=== PATIENT | male | born 1995 | race Caucasian/White ===

== ENCOUNTER 2023-05-12 18:42 | Observation (INO) | payer OTHER ==
[2023-05-12] MEDS ORDERED: SODIUM CHLORIDE 0.9% 1,000 ML IV STA (18:59)
--- NOTE | 2023-05-12 19:05 | ED ---
Trauma HPI - General Source: patient, RN notes reviewed Mode of arrival: ambulatory Limitations: no limitations <Segun Watson - Last Filed: 05/12/23 20:30> <Jean Paul Saleh - Last Filed: 05/12/23 22:03> - General Chief Complaint: Trauma Stated Complaint: [facility]-Tra[facility] - History of Present Illness Initial Comments: This is a pleasant 27-year-old male presents to emergency department after being electrocuted at work at about 4:30 PM. Patient states he was working contact board. States he drinks 2 plates were by a piece of sand paper. However in the process of working with this he sustained a shock he continues to his left middle finger. He felt the shock of his left arm around his shoulders and his right hand. Soreness to the left upper arm and left shoulder. As well as the left upper chest area. Exacerbated by movement., Sore pain. Lungs breath. Patient believes he might have lost consciousness for a second. There was no resuscitation needed. Patient denying any shortness of breath. No hearing disturbance. No headache. No numbness or tingling. Does state that he is having a pounding sensation to his heart. No significant past medical history. Nonsmoker, no alcohol or drug abuse. (Segun Watson) - Related Data Home Medications Medication Instructions Recorded Confirmed No Known Home Medications 05/12/23 05/12/23 Allergies Allergy/AdvReac Type Severity Reaction Status Date / Time No Known Allergies Allergy Verified 05/12/23 20:23 Review of Systems ROS Other: All systems not noted in ROS Statement are negative. <Segun Watson - Last Filed: 05/12/23 20:30> ROS Other: All systems not noted in ROS Statement are negative. <Jean Paul Saleh - Last Filed: 05/12/23 22:03> ROS Statement: Those systems with pertinent positive or pertinent negative responses have been documented in the HPI. Past Medical History Past Medical History: No Reported History History of Any Multi-Drug Resistant Organisms: None Reported Past Surgical History: Back Surgery Past Psychological History: No Psychological Hx Reported Smoking Status: Never smoker Past Alcohol Use History: None Reported Past Drug Use History: None Reported <Segun Watson - Last Filed: 05/12/23 20:30> General Exam Limitations: no limitations General appearance: alert, in no apparent distress Head exam: Present: atraumatic, normocephalic, normal inspection Eye exam: Present: normal appearance, PERRL, EOMI. Absent: scleral icterus, conjunctival injection, periorbital swelling ENT exam: Present: normal exam, normal oropharynx, mucous membranes moist, TM's normal bilaterally, normal external ear exam Neck exam: Present: normal inspection, full ROM. Absent: tenderness, meningismus, lymphadenopathy Respiratory exam: Present: normal lung sounds bilaterally. Absent: respiratory distress, wheezes, rales, rhonchi, stridor Cardiovascular Exam: Present: regular rate, normal rhythm, normal heart sounds. Absent: systolic murmur, diastolic murmur, rubs, gallop, clicks GI/Abdominal exam: Present: soft, normal bowel sounds. Absent: distended, tenderness, guarding, rebound, rigid Extremities exam: Present: normal inspection, full ROM, normal capillary refill, other (Full range of motion all major joints. Full muscle strength all major muscle groups. Compartments are soft in the affected limbs.). Absent: tenderness, pedal edema, joint swelling, calf tenderness Back exam: Present: normal inspection Neurological exam: Present: alert, oriented X3, CN II-XII intact Psychiatric exam: Present: normal affect, normal mood Skin exam: Present: warm, dry, intact, normal color. Absent: rash <Segun Watson - Last Filed: 05/12/23 20:30> - General Exam Comments Initial Comments: Vital signs stable, patient afebrile. Patient does not appear to be ill or toxic. Cranial nerves II through XII grossly intact. Alert and oriented 4. (Segun Watson) Course <Segun Watson - Last Filed: 05/12/23 20:30> Vital Signs 05/12/23 05/12/23 05/12/23 18:44 18:51 20:51 Temperature 98.6 F Pulse Rate 87 80 68 Respiratory 20 16 20 Rate Blood Pressure 157/83 136/83 146/80 O2 Sat by Pulse 98 97 98 Oximetry - Reevaluation(s) Reevaluation #1: 05/12/23 20:03 Patient's laboratory investigations are essentially unremarkable. CPK is normal. Kidney function normal. CBC, CMP unremarkable. Lactic acid is normal. Patient in no significant distress. The case was discussed in detail with ED attending physician. Presentation, findings, treatment plan discussed in detail. Patient also seen and assessed by the ED attending physician, Dr. Saleh (Segun Watson) Medical Decision Making - Lab Data Result diagrams: 05/12/23 19:10 05/12/23 19:10 When compared to previous EKG there are: previous EKG unavailable Interpretation: no acute changes, normal EKG (EKG shows sinus rhythm with sinus arrhythmia, rate 82, normal intervals, normal axis, no acute ST or T-wave changes. No evidence of ST elevation or depression.) <Segun Watson - Last Filed: 05/12/23 20:30> - Lab Data Result diagrams: 05/12/23 19:10 05/12/23 19:10 <Jean Paul Saleh - Last Filed: 05/12/23 22:03> - Medical Decision Making Was pt. sent in by a medical professional or institution? @ -[no] Did you speak to anyone other than the patient for history? @ -[No] Did you review nursing and triage notes? @ -Agree Were old charts reviewed? @ -Not available Differential Diagnosis? @ -Low-voltage electrical shocks, rhabdomyolysis, electrical burn, early compartment syndrome, cardiac arrhythmia, this is not an all inclusive list.. EKG interpreted by me (3pts min.)? @ -Interpreted independently by me. See ER course X-rays interpreted by me (1pt min.)? @ -[none] CT interpreted by me (1pt min.)? @ -[none] U/S interpreted by me (1pt. min.)? @ -[none] What testing was considered but not performed? (CT, X-rays, U/S, labs)? Why? @ TEST indicated were performed What meds were considered but not given? Why? @ -Acetaminophen and ibuprofen for general soreness. Patient deferred initially Did you discuss the management of the patient with other professionals? @ -The case was discussed in detail with ED attending physician. Presentation, findings, treatment plan discussed in detail. Discussed in detail with Dr. Saleh as well as the trauma surgeon, Dr. Cifuentes--patient admitted for observation under hospitalist physician Did you reconcile home meds? @ -Workable Was smoking cessation discussed for >3mins.? @ -[none] Was critical care preformed (if so, how long)? @ -[none] Were there social determinants of health that impacted care today? How? (Homelessness, low income, unemployed, alcoholism, drug addiction, transportation, low edu. Level, literacy, decrease access to med. care, nursing home, rehab)? 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 Patient lives in [facility]. Certainly this could hamper continuity of care and follow-up for the patient. This is a work-related injury. Was there de-escalation of care discussed even if they declined? (Discuss DNR or withdrawal of care, Hospice)? @ -Discussed, full code What co-morbidities impacted this encounter? (DM, HTN, Smoking, COPD, CAD, Cance r, CVA, Hep., AIDS, mental health diagnosis, sleep apnea, morbid obesity)? @ -No significant comorbidities Was patient admitted / discharged? @ -Admitted, observation Undiagnosed new problem with uncertain prognosis? @ -Yes Drug Therapy requiring intensive monitoring for toxicity (Heparin, Nitro, Insulin, Cardizem)? @ -[none] Were any procedures done? @ -[none] Diagnosis/symptom? @ -Electrical shock, suspected entry into the left hand and asked through the right arm. Patient retains muscle soreness in the left arm and shoulder area, initial palpitations have ceased Acute, or Chronic, or Acute on Chronic? @ -Acute Uncomplicated (without systemic symptoms) or Complicated (systemic symptoms)? @ -No evidence of current systemic symptoms. However the patient would benefit from observation to ensure there is no progression of muscle damage. BP CK, observation for potential compartment syndrome. Side effects of treatment? @ -[none] Exacerbation, Progression, or Severe Exacerbation] @ -[no] Poses a threat to life or bodily function? @ -Unlikely at this point. Patient will require observation to ensure Decision to admit discussed in detail with the patient. Patient admitted to her shared decision-making for observation. Repeat BMP and CK ordered for the morning. Discussed with trauma surgery. Orthopedic consultation made for monitoring of potential compartment syndrome. (Segun Watson) I personally examined the patient, there is no external nixon. Compartments are soft throughout the upper extremities. He is in sinus rhythm with stable vitals. He has a normal CBC, normal CMP, negative CK, negative troponin. He will be observed overnight on telemetry. Repeat CK will be ordered in the morning. Case discussed with Dr. Zimmerman who will admit. (Jean Paul Saleh) - Lab Data Lab Results 05/12/23 05/12/23 05/12/23 Range/Units 19:10 19:10 19:10 WBC 6.2 (3.8-10.6) k/uL RBC 5.09 (4.30-5.90) m/uL Hgb 15.1 (13.0-17.5) gm/dL Hct 42.9 (39.0-53.0) % MCV 84.3 (80.0-100.0) fL MCH 29.7 (25.0-35.0) pg MCHC 35.3 (31.0-37.0) g/dL RDW 12.8 (11.5-15.5) % Plt Count 245 (150-450) k/uL MPV 8.6 Neutrophils % 64 % Lymphocytes % 25 % Monocytes % 6 % Eosinophils % 2 % Basophils % 0 % Neutrophils # 4.0 (1.3-7.7) k/uL Lymphocytes # 1.5 (1.0-4.8) k/uL Monocytes # 0.4 (0-1.0) k/uL Eosinophils # 0.2 (0-0.7) k/uL Basophils # 0.0 (0-0.2) k/uL Sodium 138 (137-145) mmol/L Potassium 4.0 (3.5-5.1) mmol/L Chloride 103 (98-107) mmol/L Carbon Dioxide 23 (22-30) mmol/L Anion Gap 12 mmol/L BUN 17 (9-20) mg/dL Creatinine 0.74 (0.66-1.25) mg/dL Est GFR (CKD-EPI)AfAm >90 (>60 ml/min/1.73 sqM) Est GFR (CKD-EPI)NonAf >90 (>60 ml/min/1.73 sqM) Glucose 116 H (74-99) mg/dL Plasma Lactic Acid Bennie (0.7-2.0) mmol/L Calcium 9.2 (8.4-10.2) mg/dL Total Bilirubin 0.8 (0.2-1.3) mg/dL AST 36 (17-59) U/L ALT 41 (4-49) U/L Alkaline Phosphatase 50 (38-126) U/L Creatine Kinase 119 (55-170) U/L Troponin I <0.012 (0.000-0.034) ng/mL Total Protein 8.0 (6.3-8.2) g/dL Albumin 4.7 (3.5-5.0) g/dL Urine Color Urine Appearance (Clear) Urine pH (5.0-8.0) Ur Specific [place] (1.001-1.035) Urine Protein (Negative) Urine Glucose (UA) (Negative) Urine Ketones (Negative) Urine Blood (Negative) Urine Nitrite (Negative) Urine Bilirubin (Negative) Urine Urobilinogen (<2.0) mg/dL Ur Leukocyte Esterase (Negative) Urine Opiates Screen (NotDetected) Ur Oxycodone Screen (NotDetected) Urine Methadone Screen (NotDetected) Ur Propoxyphene Screen (NotDetected) Ur Barbiturates Screen (NotDetected) U Tricyclic Antidepress (NotDetected) Ur Phencyclidine Scrn (NotDetected) Ur Amphetamines Screen (NotDetected) U Methamphetamines Scrn (NotDetected) U Benzodiazepines Scrn (NotDetected) Urine Cocaine Screen (NotDetected) U Marijuana (THC) Screen (NotDetected) Serum Alcohol <10 mg/dL 05/12/23 05/12/23 05/12/23 Range/Units 19:10 19:36 19:36 WBC (3.8-10.6) k/uL RBC (4.30-5.90) m/uL Hgb (13.0-17.5) gm/dL Hct (39.0-53.0) % MCV (80.0-100.0) fL MCH (25.0-35.0) pg MCHC (31.0-37.0) g/dL RDW (11.5-15.5) % Plt Count (150-450) k/uL MPV Neutrophils % % Lymphocytes % % Monocytes % % Eosinophils % % Basophils % % Neutrophils # (1.3-7.7) k/uL Lymphocytes # (1.0-4.8) k/uL Monocytes # (0-1.0) k/uL Eosinophils # (0-0.7) k/uL Basophils # (0-0.2) k/uL Sodium (137-145) mmol/L Potassium (3.5-5.1) mmol/L Chloride (98-107) mmol/L Carbon Dioxide (22-30) mmol/L Anion Gap mmol/L BUN (9-20) mg/dL Creatinine (0.66-1.25) mg/dL Est GFR (CKD-EPI)AfAm (>60 ml/min/1.73 sqM) Est GFR (CKD-EPI)NonAf (>60 ml/min/1.73 sqM) Glucose (74-99) mg/dL Plasma Lactic Acid Bennie 1.1 (0.7-2.0) mmol/L Calcium (8.4-10.2) mg/dL Total Bilirubin (0.2-1.3) mg/dL AST (17-59) U/L ALT (4-49) U/L Alkaline Phosphatase (38-126) U/L Creatine Kinase (55-170) U/L Troponin I (0.000-0.034) ng/mL Total Protein (6.3-8.2) g/dL Albumin (3.5-5.0) g/dL Urine Color Yellow Urine Appearance Clear (Clear) Urine pH 6.5 (5.0-8.0) Ur Specific [place] 1.016 (1.001-1.035) Urine Protein Negative (Negative) Urine Glucose (UA) 1+ H (Negative) Urine Ketones Negative (Negative) Urine Blood Negative (Negative) Urine Nitrite Negative (Negative) Urine Bilirubin Negative (Negative) Urine Urobilinogen <2.0 (<2.0) mg/dL Ur Leukocyte Esterase Negative (Negative) Urine Opiates Screen Not Detected (NotDetected) Ur Oxycodone Screen Not Detected (NotDetected) Urine Methadone Screen Not Detected (NotDetected) Ur Propoxyphene Screen Not Detected (NotDetected) Ur Barbiturates Screen Not Detected (NotDetected) U Tricyclic Antidepress Not Detected (NotDetected) Ur Phencyclidine Scrn Not Detected (NotDetected) Ur Amphetamines Screen Not Detected (NotDetected) U Methamphetamines Scrn Not Detected (NotDetected) U Benzodiazepines Scrn Not Detected (NotDetected) Urine Cocaine Screen Not Detected (NotDetected) U Marijuana (THC) Screen Not Detected (NotDetected) Serum Alcohol mg/dL Disposition Is patient prescribed a controlled substance at d/c from ED?: No Time of Disposition: 20:12 Decision to Admit Reason: Admit from EC Decision Date: 05/12/23 <Segun Watson - Last Filed: 05/12/23 20:30> <Jean Paul Saleh - Last Filed: 05/12/23 22:03> Clinical Impression: Electric shock Disposition: ADMITTED IP TO THIS HOSP Condition: Good
[2023-05-12 19:14] LABS: Basophils % (A) 0 %; Eosinophils # (A) 0.2 k/uL (0-0.7); Eosinophils % (A) 2 %; HCT 42.9 % (39.0-53.0); HGB 15.1 gm/dL (13.0-17.5); Lymphocytes # (A) 1.5 k/uL (1.0-4.8); Lymphocytes % (A) 25 %; MCH 29.7 pg (25.0-35.0); MCHC 35.3 g/dL (31.0-37.0); MCV 84.3 fL (80.0-100.0); Mean Platelet Volume 8.6; Monocytes # (A) 0.4 k/uL (0-1.0); Monocytes % (A) 6 %; Neutrophils % (A) 64 %; Platelet Count 245 k/uL (150-450); RBC 5.09 m/uL (4.30-5.90); RDW 12.8 % (11.5-15.5); WBC 6.2 k/uL (3.8-10.6)
[2023-05-12 19:24] LABS: ALT 41 U/L (4-49); AST 36 U/L (17-59); African American GFR (CKD) >90 (>60 ml/min/1.73 sqM); Albumin 4.7 g/dL (3.5-5.0); Alcohol <10 mg/dL; Alkaline Phosphatase 50 U/L (38-126); Anion Gap 12 mmol/L; Blood Urea Nitrogen 17 mg/dL (9-20); Calcium 9.2 mg/dL (8.4-10.2); Carbon Dioxide 23 mmol/L (22-30); Chloride 103 mmol/L (98-107); Creatine Kinase 119 U/L (55-170); Glucose 116 mg/dL (74-99); Non-African American GFR(CKD) >90 (>60 ml/min/1.73 sqM); Sodium 138 mmol/L (137-145); Total Bilirubin 0.8 mg/dL (0.2-1.3)
[2023-05-12 19:48] LABS: Appearance,Urine Clear (Clear); Bilirubin,Urine Negative (Negative); Blood,Urine Negative (Negative); Color,Urine Yellow; Glucose,Urine (UA) 1+ (Negative); Ketones,Urine Negative (Negative); Leukocyte Esterase,Urine Negative (Negative); Nitrite,Urine Negative (Negative); PH, Urine 6.5 (5.0-8.0); Protein,Urine Negative (Negative); Specific Gravity,Urine 1.016 (1.001-1.035); Urobilinogen,Urine <2.0 mg/dL (<2.0)
[2023-05-12 20:02] LABS: Amphetamine Screen,Urine Not Detected (NotDetected); Barbiturate Screen,Urine Not Detected (NotDetected); Benzodiazepines Screen,Urine Not Detected (NotDetected); Cocaine Screen,Urine Not Detected (NotDetected); Methadone Screen, Urine Not Detected (NotDetected); Opiate Screen,Urine Not Detected (NotDetected); Oxycodone Screen, Urine Not Detected (NotDetected); Phencyclidine Screen,Urine Not Detected (NotDetected); Tricyclic Antidepressant,Urine Not Detected (NotDetected); Urn Cannabinoid Scrn Not Detected (NotDetected)
[2023-05-12] MEDS ORDERED: ACETAMINOPHEN TAB 325 MG TAB PO PRN (20:13)
[2023-05-12] MEDS ORDERED: IBUPROFEN 400 MG TAB PO PRN (20:13)
[2023-05-12] MEDS: SODIUM CHLORIDE 0.9% 1,000 ML IV SCH (21:26)
[2023-05-12] MEDS: HEPARIN SODIUM,PORCINE/PF 5,000 UNIT/0.5 ML SYRINGE SQ SCH (23:08)
[2023-05-13] MEDS: SODIUM CHLORIDE 0.9% 1,000 ML IV SCH ×2 (03:06→14:26)
[2023-05-13] MEDS: HEPARIN SODIUM,PORCINE/PF 5,000 UNIT/0.5 ML SYRINGE SQ SCH (09:28)
--- NOTE | 2023-05-13 11:49 | P.CNOR ---
History of Present Illness - [facility] Consult date: 05/13/23 Consult reason: other (Electrical shock - monitor compartment syndrome) History of present illness: History of Presenting Illness Patient is a is a pleasant 27-year-old male who presents to emergency department after being electrocuted at work yesterday afternoon. 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 He states everything happen so fast, he felt it shock into his left middle finger and to his left arm around his shoulders and exiting out into his right hand. There is no entering or exiting nixon noted. Patient does have complaint of soreness to the left upper arm and left shoulder. He does state improvement since admission. Patient denies any numbness or tingling to bilateral upper or lower extremities. Patient is up and independent within room. Patient is hopeful for discharge later today. Our services were consulted to monitor for possible compartment syndrome. Patient denies any orthopedic history. Review of Systems Pertinent positives and negatives as discussed in HPI, a complete review of systems was performed and all other systems are negative. Physical Examination General: The patient is awake and alert, in no acute distress Skin: Skin is warm and dry with no obvious rashes or lesions. Eye: Pupils are equal, round and reactive to light, extra-ocular movements are intact; there is normal conjunctiva bilaterally. Neck: The neck is supple, there is no tenderness and ROM intact. Cardiovascular: There is a regular rate and rhythm. No murmur, rub or gallop is appreciated. Respiratory: Lungs are clear to auscultation, respirations are non-labored, breath sounds are equal. Gastrointestinal: Soft, non-distended, non-tender abdomen. Back: There is no tenderness to palpation in the midline, paralumbar, parathoracic or buttocks region. There is no obvious deformity. Musculoskeletal: FROM of upper and lower extremities. Shoulder abduction 5/5, elbow flexors 5/5, wrist dorsiflexors 5/5. 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 Neurological: CN 2-12 intact. There are no obvious motor or sensory deficits. Movement and coordination equal and intact. Sensory exam to light touch intact C5-T1 and intact from L2-S1. Reflexes 2/4 in bilateral upper and lower extremities. Negative Hoffmans, babinski, and clonus signs. Psychiatric: Cooperative, appropriate mood & affect, normal judgment. Assessment and Plan Electrical shock At this time we do not recommend any emergent/urgent orthopedic surgical intervention. Patient may follow-up with Dr. Mason office for further evaluation as needed. Orthopedics is signing off at this time. Please do not hesitate to contact us for any further questions. 2. Appreciate medical management 3. Pain management - per medicine 7. Appreciate consult I reviewed and discussed this case with my attending Dr. Mason, whom has reviewed this chart and films and is in agreement with assessment and plan of care as outlined above. I have personally seen and examined the patient, performed the documentation and the assessment and plan as written. Number of minutes spent on the visit: 15m. Past Medical History Past Medical History: No Reported History History of Any Multi-Drug Resistant Organisms: None Reported Past Surgical History: Back Surgery Past Psychological History: No Psychological Hx Reported Smoking Status: Never smoker Past Alcohol Use History: None Reported Past Drug Use History: None Reported Medications and Allergies Home Medications Medication Instructions Recorded Confirmed Type No Known Home Medications 05/12/23 05/12/23 History Allergies Allergy/AdvReac Type Severity Reaction Status Date / Time No Known Allergies Allergy Verified 05/12/23 20:23 Results - Labs Labs: Abnormal Lab Results - Last 24 Hours (Table) 05/12/23 05/12/23 Range/Units 19:10 19:36 Glucose 116 H (74-99) mg/dL Urine Glucose (UA) 1+ H (Negative) H & H 05/12/23 Range/Units 19:10 Hgb 15.1 (13.0-17.5) gm/dL Hct 42.9 (39.0-53.0) % Result Diagrams: 05/12/23 19:10 05/12/23 19:10
[2023-05-13 12:24] LABS: BUN/Creat Ratio 13.67 Ratio (12.00-20.00); Blood Urea Nitrogen 12.3 mg/dL (9.0-27.0); Calcium 9.1 mg/dL (8.7-10.3); Carbon Dioxide 23.9 mmol/L (21.6-31.8); Chloride 108 mmol/L (96-109); Creatine Kinase 101 U/L (35-257); Glucose 94 mg/dL (70-110); Sodium 141 mmol/L (135-145)
[2023-05-13 14:52] VITALS: BP 144/74; PULSE 83; RESP 16; TEMP 98.1
--- NOTE | 2023-05-13 15:18 | P.GSHP ---
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 Patient reports hands and numbness has improved not resolved. Patient seen by orthopedics. CPK normal. Patient rested comfortably. Tolerating diet. EKG unremarkable. Over the proctor, stable for discharge. Paperwork for clearance to return to work written on his behalf. Safety with handling electrical equipment also discussed including safety gloves and grounding. Past Medical History Past Medical History: No Reported History History of Any Multi-Drug Resistant Organisms: None Reported Past Surgical History: Back Surgery Past Psychological History: No Psychological Hx Reported Smoking Status: Never smoker Past Alcohol Use History: None Reported Past Drug Use History: None Reported Medications and Allergies Home Medications Medication Instructions Recorded Confirmed Type No Known Home Medications 05/12/23 05/12/23 History Allergies Allergy/AdvReac Type Severity Reaction Status Date / Time No Known Allergies Allergy Verified 05/12/23 20:23 Surgical - Exam Vital Signs Temp Pulse Resp BP Pulse Ox 98.6 F 87 20 157/83 98 05/12/23 18:44 05/12/23 18:44 05/12/23 18:44 05/12/23 18:44 05/12/23 18:44 Results - Labs 05/12/23 19:10 05/13/23 06:28 Abnormal Lab Results - Last 24 Hours (Table) 05/12/23 05/12/23 Range/Units 19:10 19:36 Glucose 116 H (74-99) mg/dL Urine Glucose (UA) 1+ H (Negative) Diabetes panel 05/12/23 05/13/23 Range/Units 19:10 06:28 Sodium 138 141 (137-145) mmol/L Potassium 4.0 4.0 (3.5-5.1) mmol/L Chloride 103 108 (98-107) mmol/L Carbon Dioxide 23 23.9 (22-30) mmol/L BUN 17 12.3 (9-20) mg/dL Creatinine 0.74 0.9 (0.66-1.25) mg/dL Glucose 116 H 94 (74-99) mg/dL Calcium 9.2 9.1 (8.4-10.2) mg/dL AST 36 (17-59) U/L ALT 41 (4-49) U/L Alkaline Phosphatase 50 (38-126) U/L Total Protein 8.0 (6.3-8.2) g/dL Albumin 4.7 (3.5-5.0) g/dL Calcium panel 05/12/23 05/13/23 Range/Units 19:10 06:28 Calcium 9.2 9.1 (8.4-10.2) mg/dL Albumin 4.7 (3.5-5.0) g/dL Pituitary panel 05/12/23 05/13/23 Range/Units 19:10 06:28 Sodium 138 141 (137-145) mmol/L Potassium 4.0 4.0 (3.5-5.1) mmol/L Chloride 103 108 (98-107) mmol/L Carbon Dioxide 23 23.9 (22-30) mmol/L BUN 17 12.3 (9-20) mg/dL Creatinine 0.74 0.9 (0.66-1.25) mg/dL Glucose 116 H 94 (74-99) mg/dL Calcium 9.2 9.1 (8.4-10.2) mg/dL Adrenal panel 05/12/23 05/13/23 Range/Units 19:10 06:28 Sodium 138 141 (137-145) mmol/L Potassium 4.0 4.0 (3.5-5.1) mmol/L Chloride 103 108 (98-107) mmol/L Carbon Dioxide 23 23.9 (22-30) mmol/L BUN 17 12.3 (9-20) mg/dL Creatinine 0.74 0.9 (0.66-1.25) mg/dL Glucose 116 H 94 (74-99) mg/dL Calcium 9.2 9.1 (8.4-10.2) mg/dL Total Bilirubin 0.8 (0.2-1.3) mg/dL AST 36 (17-59) U/L ALT 41 (4-49) U/L Alkaline Phosphatase 50 (38-126) U/L Total Protein 8.0 (6.3-8.2) g/dL Albumin 4.7 (3.5-5.0) g/dL
--- NOTE | 2023-05-14 22:50 | P.DS ---
Providers Date of admission: 05/12/23 20:38 Expected date of discharge: 05/13/23 Attending physician: Lottie Zimmerman Consults: 05/12/23 20:30 Consult Physician Urgent Consulting Provider: Marcel Mason Consult Reason/Comments: Electrical shock--monitor for compartment syndrome Do you want consulting provider notified?: Yes Primary care physician: Stated None Hospital Course: Patient reports moderate improvement in symptoms following electrocution. Safety advised. Patient stable for discharge. Patient cleared by orthopedics. Patient Condition at Discharge: Good Plan - Discharge Summary New Discharge Prescriptions: New Acetaminophen Tab [Tylenol Tab] 1,000 mg PO Q6HR PRN #30 tablet PRN Reason: Pain Discharge Medication List Acetaminophen Tab [Tylenol Tab] 1,000 mg PO Q6HR PRN #30 tablet 05/13/23 [Rx] Follow up Appointment(s)/Referral(s): None,Stated [Primary Care Provider] - 1-2 days Patient Instructions/Handouts: Electrical Live in Adults (GEN) Discharge Disposition: HOME SELF-CARE
== END 2023-05-13 16:20 | disposition home or self-care (01) ==
LOC: EC 18:42 → 6NMEDSUR 20:38
PROVIDERS: ADMIT Surgery Plastic and Reconstructive Surgery; ATTEND Surgery Plastic and Reconstructive Surgery
DX: T75.4XXA Electrocution, initial encounter (principal); M79.18 Myalgia, other site; R00.2 Palpitations; W86.8XXA Exposure to other electric current, initial encounter; Y99.0 Civilian activity done for income or pay
CPT/HCPCS: 96361 ×2; 96372; 96360; 99285; 36415; 93005; 80053; 80048; 82550 ×2; 83605; 84484; 85025; 81003; 80306; 80320; G0378 ×2; J1644